=== PATIENT | female | born 1990 | race Caucasian/White ===

== ENCOUNTER → 2022-04-11 | Outpatient (CLI) | payer OTHER ==
--- NOTE | 2022-04-11 12:41 | US ---
EXAMINATION TYPE: US thyroid st tissue head/neck DATE OF EXAM: 04/11/2022 COMPARISON: 05/22/2015 CLINICAL HISTORY: 31-year-old female E34.9 ELEVATED PARATHYROID HORMONE. Elevated parathyroid hormone . Nausea and vomiting Technique: Multiple sonographic images of the thyroid gland are obtained. FINDINGS: GLAND SIZE: Right Lobe: 4.9 x 1.5 x 1.5 cm Overall Parenchyma: homogenous Left Lobe: 3.9 x 1.4 x 1.3 cm Overall Parenchyma: homogeneous Isthmus Thickness: 0.3 cm NODULES RIGHT: # of nodules measured on right: 0 LEFT: # of nodules measured on left: 0 ISTHMUS: # of nodules measured in the isthmus: 0 Bilateral neck scanned, no evidence of lymphadenopathy. IMPRESSION: Unremarkable sonographic appearance of the thyroid gland.
--- NOTE | 2022-04-11 12:46 | US ---
EXAMINATION TYPE: US abdomen complete DATE OF EXAM: 04/11/2022 COMPARISON: 09/02/2014 CLINICAL HISTORY: 31-year-old female r11.0 chr nausea and vomiting for 2-3 weeks TECHNIQUE: Multiple sonographic images of the abdomen are obtained. FINDINGS: EXAM MEASUREMENTS: Liver Length: 18.5 cm Gallbladder Wall: 0.2 cm CBD: 0.3 cm Spleen: 10.8 cm Right Kidney: 10.2 x 4.3 x 4.8 cm Left Kidney: 11.3 x 5.3 x 4.8 cm Pancreas: Most of the pancreas is visualized and shows no gross quality. Liver: Mildly enlarged possibly due to the presence of a Lenin's lobe. Overall homogeneous appearanc e. No focal lesion. Gallbladder: sludge/debris. No abnormal gallbladder distention, wall thickening, pericholecystic flu id, or shadowing calculi. Evidence for sonographic Gray's sign: no CBD: wnl Spleen: wnl Right Kidney: no evidence of hydronephrosis Left Kidney: no evidence of hydronephrosis Upper IVC: wnl Abd Aorta: wnl IMPRESSION: Gallbladder sludge and debris. No gallstones or ancillary findings of acute cholecystitis. No biliary ductal dilatation.
== END | disposition home or self-care (01) ==
LOC: RADUSWWP 10:10
PROVIDERS: ATTEND Family Medicine
DX: R11.0 Nausea (principal); E34.9 Endocrine disorder, unspecified
CPT/HCPCS: 76536; 76700

== ENCOUNTER → 2022-06-05 | Outpatient (CLI) | payer OTHER ==
[2022-06-06 00:43] LABS: African American GFR (CKD) 134.2 (60.0-200.0); Anion Gap 9.7 mmol/L (10.00-18.00); BUN/Creat Ratio 18.8 Ratio (12.00-20.00); Blood Urea Nitrogen 12.5 mg/dL (9.0-27.0); Carbon Dioxide 23.7 mmol/L (20.0-27.5); Non-African American GFR(CKD) 115.8 (60.0-200.0); Phosphorus 3.6 mg/dL (2.4-5.1); Potassium 4.8 mmol/L (3.5-5.5)
[2022-06-06 00:51] LABS: Basophils # (A) 0.06 X 10*3/uL (0.00-0.10); Basophils % (A) 0.6 %; Eosinophils % (A) 2.9 %; HCT 39.7 % (37.2-46.3); HGB 12.2 g/dL (12.0-15.0); Immature Grans, Automated 0.3 %; Lymphocytes # (A) 3.76 X 10*3/uL (0.90-5.00); Lymphocytes % (A) 36.5 %; MCH 29.3 pg (27.0-32.0); MCHC 30.7 g/dL (32.0-37.0); MCV 95.4 fL (80.0-97.0); Mean Platelet Volume 9.8 fL (9.5-12.2); Monocytes # (A) 0.57 X 10*3/uL (0.20-1.00); Monocytes % (A) 5.5 %; NRBC Per 100 WBC 0 /100 WBCS (0.0-0.0); Neutrophils # (A) 5.59 X 10*3/uL (1.80-7.70); Neutrophils % (A) 54.2 %; Platelet Count 330 X 10*3/uL (140-440); RBC 4.16 X 10*6/uL (4.10-5.20); RDW 14.5 % (11.5-14.5); WBC 10.31 X 10*3/uL (4.50-10.00)
== END | disposition home or self-care (01) ==
LOC: LABWHC1 16:08
PROVIDERS: ATTEND Nurse Practitioner Acute Care
DX: D64.9 Anemia, unspecified (principal); E21.3 Hyperparathyroidism, unspecified; E55.9 Vitamin D deficiency, unspecified
CPT/HCPCS: 36415; 80048; 82306; 83735; 83970; 84100; 85025